=== PATIENT | female | born 1960 | race Caucasian/White ===

== ENCOUNTER → 2019-08-04 07:40 | Outpatient (CLI) | payer OTHER, SELFPAY ==
--- NOTE | ~2019-08-04 | MMUS_ITS ---
EXAMINATION: MM diagnostic chet BI w eva, US breast BI complete HISTORY: Unspecified lump or thickening reportedly found by patient's physician in unspecified locati on TECHNIQUE: ML, MLO and craniocaudal 3-D tomosynthesis images of both breasts were performed and synth etic 2-D images were generated. CAD analysis was submitted and interpreted. High resolution bilateral complete breast ultrasound was performed. COMPARISON: 08/04/2018, 07/14/2017, 07/10/2016 bilateral digital screening mammogram examinations BREAST PARENCHYMAL COMPOSITION: The breasts are heterogeneously dense, which may obscure small masses . FINDINGS: MAMMOGRAPHIC FINDINGS: Occasional benign calcifications. No suspicious mass or architectural distortion, malignant calcifica tion, skin thickening or retraction or significant new or developing density is detected. ULTRASOUND: At 7:00 3 cm from the nipple there is a parallel circumscribed sonolucent lesion measuring 9.5 x 6 x 3 mm, without internal vascularity or suspicious shadowing. At 10:00 5 cm from the nipple there is an approximately 2.5 mm cyst At 11:00 3 cm from the nipple there is an approximately 2.5 x 4 x 5.5 mm simple cyst. No suspicious solid lesion or shadowing is evident. IMPRESSION: 1. No mammographic evidence of malignancy 2. Routine annual mammographic screening is recommended. BI-RADS Category 2: Benign finding(s). Reviewed, dictated and finalized at location A. T ATTENDANT IMPRESSION: 1. No mammographic evidence of malignancy 2. Routine annual mammographic screening is recommended. BI-RADS Category 2: Benign finding(s).
== END ==
PROVIDERS: Visit Provider Nurse Practitioner Obstetrics & Gynecology
DX: N63.0 Unspecified lump in unspecified breast (principal); R92.8 Other abnormal and inconclusive findings on diagnostic imaging of breast
CPT/HCPCS: 76641; 77062; 77066; G0279

== ENCOUNTER → 2019-08-28 07:25 | Outpatient (CLI) | payer OTHER, SELFPAY ==
--- NOTE | ~2019-08-28 | US_ITS ---
EXAMINATION: US abdomen limited EXAM DATE: 08/28/2019 08:13 INDICATION: Right upper quadrant pain and nausea. TECHNIQUE: Multiple grayscale and Doppler images of the abdomen right upper quadrant were obtained (b y a technologist who performed the scan) and subsequently reviewed. There is no prior study for kajal hernandez. FINDINGS: The pancreatic head and body are normal in appearance. The pancreatic tail is not visualized. There is echogenic liver parenchyma, hepatic steatosis. There are no focal liver lesions identified. Th ere is no evidence of intrahepatic biliary duct dilation. Portal venous flow was seen in the hepatop edal, normal direction and has normal Doppler waveform. No right-sided hydronephrosis. Common bile duct measures 4 mm, which is normal. The gallbladder wall is normal in thickness, with ex pected amount of distention. No sonographic evidence of pericholecystic fluid. Multiple small galls tones. Technologist performing exam reports patient did not demonstrate sonographic Waters's sign. Please note that this sign is less reliable in patients who have received pain medication. IMPRESSION: 1. Hepatic steatosis. 2. Cholelithiasis. Reviewed, dictated and finalized at location B. SCIENCES DIRECTOR
== END ==
PROVIDERS: PCP Family Medicine; Visit Provider Family Medicine
DX: K76.0 Fatty (change of) liver, not elsewhere classified (principal); K80.20 Calculus of gallbladder without cholecystitis without obstruction
CPT/HCPCS: 76705

== ENCOUNTER → 2019-11-09 11:00 | Outpatient (REF) | payer OTHER, SELFPAY | LOC: ANHLAB 11:00 | PROVIDERS: PCP Family Medicine; Visit Provider Nurse Practitioner | DX: D23.72 Other benign neoplasm of skin of left lower limb, including hip (principal) | CPT/HCPCS: 88305 ==

== ENCOUNTER 2019-12-12 09:10 | Outpatient (CLI) | payer OTHER, SELFPAY ==
--- NOTE | 2019-12-12 09:14 | ECG_ITS ---
Measurements Intervals [place] Rate: 71 P: 64 WV: 201 QRS: 29 QRSD: 112 T: 36 QT: 380 QTc: 414 Interpretive Statements SINUS RHYTHM POSSIBLE LEFT ATRIAL ENLARGEMENT INTRAVENTRICULAR CONDUCTION DELAY BASELINE ARTIFACT- I, III, AVR, AVL BORDERLINE ECG Electronically Signed On 12-12-2019 9:35:48 CDT by Alphonso Fiore D.O.
[2019-12-12 09:49] LABS: Alanine Aminotransferase 20 U/L (4-35); Albumin Level 4.3 g/dL (3.5-5.1); Alkaline Phosphatase 66 U/L (38-126); Amylase 57 U/L (30-110); Aspartate Amino Transferase 25 U/L (14-36); Bilirubin,Total 0.7 mg/dL (0.2-1.3); Lipase 92 U/L (23-300)
[2019-12-12 09:50] LABS: Blood Urea Nitrogen 13 mg/dL (7-17); Calcium 9.1 mg/dL (8.4-10.2); Carbon Dioxide 27 mmol/L (22-30); Chloride 105 mmol/L (98-107); Estimated Glomerular Filt Rate > 60; Glucose 132 mg/dL (65-105); Potassium 3.6 mmol/L (3.4-5.0); Sodium 138 mmol/L (137-145)
== END 2019-12-12 09:11 | disposition home or self-care (01) ==
LOC: ANHSURGERY 09:14
PROVIDERS: Anesthesiology; PCP Family Medicine; Visit Provider Surgery
DX: Z01.818 Encounter for other preprocedural examination (principal); K80.20 Calculus of gallbladder without cholecystitis without obstruction; I10 Essential (primary) hypertension; Z79.899 Other long term (current) drug therapy
CPT/HCPCS: 36415; 80048; 80076; 82150; 83690; 86850; 86900; 86901; 93005

== ENCOUNTER 2019-12-19 00:42 | Outpatient (CLI) | payer OTHER, SELFPAY ==
[2019-12-19 18:12] LABS: SARS-CoV-2 RNA PCR Negative
== END 2019-12-19 00:43 | disposition home or self-care (01) ==
LOC: ANHCOVIDDT 00:42
PROVIDERS: PCP Family Medicine; Visit Provider Surgery
DX: Z20.828 Contact with and (suspected) exposure to other viral communicable diseases (principal); Z01.812 Encounter for preprocedural laboratory examination
CPT/HCPCS: 87635; C9803; U0003

== ENCOUNTER 2019-12-21 02:11 | Day surgery (SDC) | payer OTHER, SELFPAY ==
[2019-12-08 16:51] VITALS: BMI 32.4
[2019-12-21] VITALS (8 sets, daily range): BP systolic 90–135; BP diastolic 48–85; PULSE 56–80; RESP 12–14; TEMP 36.7–36.8; O2SAT 92–98
[2019-12-21] MEDS: LACTATED RINGERS 1,000 ML 30 ML IV CONT ×2 (07:50→09:55)
[2019-12-21] MEDS: IBUPROFEN IV 800 MG/200 ML 800 MG/200 ML BAG 400 MG IVPB (08:14)
--- NOTE | 2019-12-21 08:22 | P.PNAN_ITS ---
Anes - Initial Pre Proc Eval Procedure: Operation Date: 12/21/19 09:00 Proposed Procedures p Laparoscopic Cholecystectomy, Possible Open - Anuj Coronado DO Date/Time: 12/21/19 08:22 Surgeon: Anuj Coronado DO Pre Op Diagnosis: Cholecystitis Patient Data Age: 59 Gender: F Height: 5 ft 5 in Weight: 83.1 kg Last Vital Signs Temp 36.7 C 12/21/19 07:55 Pulse 67 12/21/19 07:55 BP 135/85 12/21/19 07:55 Pulse Ox 97 12/21/19 07:55 Allergies Allergy/AdvReac Type Severity Reaction Status Date / Time No Known Allergies Allergy Verified 12/08/19 16:40 Home Medications Medication Instructions Recorded Confirmed Type potassium chloride 10 mEq 10 meq PO TID #90 tablet 05/30/19 12/21/19 Rx tablet,extended release atenolol 50 mg-chlorthalidone 25 1 tablet PO DAILY 08/21/19 12/21/19 History mg tablet niacin 1 tablet PO DAILY 12/08/19 12/21/19 History Patient hx anesthesia problems: none Family hx anesthesia problems: none [facility] Past Medical History Medical History Benign reactive hypertension Hypothyroidism (acquired) Family History Family History Mother Hypertension Breast cancer Father History of blood clots Social History Social History Social History: Single Smoking status: Never smoker Second hand tobacco smoke exposure: No Alcohol intake: current Substance use: never Substance use type: does not use Gender identity (if verbalized by the patient): Female Anes - Eval Final PreProcedure Day of Procedure 12/21/19 08:22 Patient weight: obese Heart: regular rate and rhythm Lungs: clear to auscultation Airway: Mallampati scale class II and special considerations poor opening Last oral intake: >/= 8 hours ASA classification: II Emergent: no Anesthetic plan: proceed Anesthesia type and monitoring: general ETT and standard monitoring Informed Consent: The patient's anesthetic plan and its attendant risks and benefits were discussed with the patient/family/POA. Questions were solicited and answers provided to the satisfaction of the patient/family/POA.
--- NOTE | 2019-12-21 08:49 | PM.IMHP ---
H&P: HPI History of Present Illness Chief complaint: Cholecystitis Narrative: Yumiko Irwin is a 59 year old female who presents for Lap brendan. She has been experiencing RUQ pain after eating. U/s showed evidence of cholelithiasis. Review of Systems Review of Systems: All systems reviewed & are unremarkable except as noted in HPI and below PMFSH Past Medical History Medical History Benign reactive hypertension Hypothyroidism (acquired) Family History Family History Mother Hypertension Breast cancer Father History of blood clots Social History Social History Social History: Single Smoking status: Never smoker Second hand tobacco smoke exposure: No Alcohol intake: current Substance use: never Substance use type: does not use Gender identity (if verbalized by the patient): Female Meds Home Medications and Allergies Home Medications Medication Instructions Recorded Confirmed Type potassium chloride 10 mEq 10 meq PO TID #90 tablet 05/30/19 12/21/19 Rx tablet,extended release atenolol 50 mg-chlorthalidone 25 1 tablet PO DAILY 08/21/19 12/21/19 History mg tablet niacin 1 tablet PO DAILY 12/08/19 12/21/19 History Allergies Allergy/AdvReac Type Severity Reaction Status Date / Time No Known Allergies Allergy Verified 12/08/19 16:40 Vital Signs Vital Signs - 24 hr 12/21/19 07:55 Temperature 36.7 C Pulse Rate 67 Blood Pressure 135/85 Pulse Oximetry 97 Exam Const: General: alert; No acute distress Orientation/consciousness: patient oriented x3 Limitations: no limitations HENMT: Head: normocephalic and atraumatic Ears: hearing grossly normal bilaterally General nose exam: Normal external nose present and Normal nares present Mouth: Yes Normal oral and palatal mucosa present and Yes moist mucous membranes Eyes: General: appearance normal, both eyes and all related structures Conjunctivae: conjunctivae normal Sclera: sclerae normal Pupils: Equal, round and reactive pupils present EOM: EOMs intact bilaterally Neck: Neck: normal visual inspection, full ROM, no lymphadenopathy, supple and no JVD Lymphatic: no lymphadenopathy noted Chest: Chest palpation & inspection: normal inspection of the chest Resp: Effort & Inspection: normal respiratory effort and able to speak in complete sentences Auscultation: clear to auscultation bilaterally Percussion: percussion normal Cardio: Jugular venous distension: no JVD Rate: regular rate Rhythm: regular rhythm Heart sounds: S1 normal heart sound present and S2 normal heart sound present Peripheral pulses: Peripheral pulses 2+ throughout GI: Inspection: normal to inspection GI Palp: No abdominal tenderness, Yes Soft to palpation, No Guarding due to palpation present (GI), No Hernia present and No Rebound tenderness present Percussion: Yes normal to percussion Auscultation: normal bowel sounds : General: Yes no CVA tenderness Back/Spine/Pelvis: Back: no CVA tenderness Skin: General skin exam: normal color and dry skin Neuro: General: patient oriented x3, gait normal, moves all extremities, no focal motor deficits and CN's II-XI intact bilaterally Cranial nerves: Yes Equal, round and reactive pupils present Speech: normal speech Extrem: General: normal to inspection and capillary refill normal Assessment and Plan Assessment and plan (1) Symptomatic cholelithiasis: Code(s): K80.20 - Calculus of gallbladder without cholecystitis without obstruction Status: Acute Assessment and Plan: I have recommended laparoscopic cholecystectomy, possible open. I have discussed the procedure, risks, benefits, and alternatives with the patient. All questions answered. No changes since last seen in office.
[2019-12-21] MEDS: ceFAZolin 2 GM/D5W 50 ML 2 GM/50 ML BAG IVPB (08:57)
[2019-12-21] MEDS: BUPIVACAINE/EPINEPHRINE 0.5% 30 ML VIAL INFILTRATE (09:22)
--- NOTE | 2019-12-21 09:56 | PM.PROC ---
Procedure Note - Detailed Date of procedure: 12/21/19 Pre-op diagnosis: Symptomatic cholelithiasis Post-op diagnosis: same Procedure performed: Laparoscopic Cholecystectomy Description of procedure: Procedure as well as risks, benefits, and alternatives were discussed with patient. Written consent was obtained and placed in chart prior to procedure. The patient was brought back to surgical suite. Patient was placed in supine position on operating table. Time-out was done to confirm patient and procedure. Patient was then intubated by the anesthesia department. Abdomen was prepped and draped in sterile fashion using chlorhexidine prep. 0.5% bupivacaine with epinephrine was infiltrated at each site of incision. An 11 millimeter vertical incision was made at the inferior portion of the umbilicus using a 15 blade scalpel. Blunt dissection was carried down to the linea alba. The linea alba was then incised using a 15 blade scalpel. The peritoneum was then bluntly entered. An 11 millimeter trocar was inserted and cabon dioxied insuflation was used to create a pneumoperitoneum. The camera was inserted and the abdomen was inspected. The patient was placed in reverse Trendelenberg position and rotated slightly to the left. A 5 millimeter incision was made in the epigastric region, and a 5 millimeter trocar was inserted under direct visualization. Two 5 millimeter incisions were made in the right upper quadrant, and two 5 millimeter trocars were inserted under direct visualization. The gallbladder was identified and grasped at the fundus and retracted superiorly. It was then grasped at the infundibulum retracted laterally. Careful dissection around the neck of the gallbladder was performed using blunt dissection with a [place] grasper and hook electrocautery. The cystic duct was identified, and a window was created behind it. The cystic artery was also identified and a window was created behind it. The critical view of safety was identified, visualizing the cystic duct running directly into the neck of the gallbladder, and the cystic artery running directly into the wall of the gallbladder. A 5 millimeter clip grinding machine operator portable was then used to place 2 clips proximally and 1 clip distally on both the cystic duct and cystic artery. They were then both transected using endoscopic scissors. Once safely away from the fara hepatitis, the gallbladder was dissected free from the liver bed using hook electrocautery. Hemostasis was achieved along the way. The gallbladder was removed completely and then removed through the umbilical port. The liver bed was then inspected. Hemostasis appeared adequate, and our clips appeared secure. The area was gently irrigated with sterile saline. No other abnormalities were seen. The patient was flattened out in bed, and 1 final inspection was made around the abdominal cavity. The ports were then removed under direct visualization, the camera was removed, and the pneumoperitoneum was released. The fascia of the umbilical incision was approximated using an 0 Vicryl [id number] suture. The skin of the incisions was approximated using 4-0 Monocryl subcuticular sutures. Exofin glue was applied on top. The patient was then awakened from anesthesia, extubated, and transferred to recovery. Anesthesia: GETA and local (0.5% bupivicaine with epinephrine) Surgeon: Anuj Coronado DO Estimated blood loss (mL): 5 Complications: No immediate complications Condition: stable Findings: Yumiko is a 58 y/o female who presents with RUQ abdominal pain, diarrhea, and vomiting. She reports experiencing RUQ and RLQ abdominal pain every few months. She states the last episode was after eating ice cream. She states time improves her symptoms. She has experienced associated diarrhea and vomiting. She denies fevers. She is trying to maintain a low fat diet. She had an U/S done at [facility] on 08/28/19 which showed hepatic steatosis and cholelithiasis.
== END 2019-12-21 11:41 | disposition home or self-care (01) ==
PROVIDERS: PCP Family Medicine; Visit Provider Surgery
PROC: 0FT44ZZ Resection of Gallbladder, Percutaneous Endoscopic Approach (ICD-10-PCS; CPT 47562; principal; 2019-12-21 09:00)
DX: K80.10 Calculus of gallbladder with chronic cholecystitis without obstruction (principal); I10 Essential (primary) hypertension; E03.9 Hypothyroidism, unspecified; E66.9 Obesity, unspecified; Z68.30 Body mass index [BMI] 30.0-30.9, adult
CPT/HCPCS: 47562; 88304; J0131; J0690; J1100; J1741; J2250; J2405; J2704; J2710; J3010; J7030; J7120

== ENCOUNTER 2022-06-08 06:40 | Day surgery (SDC) | payer OTHER, SELFPAY ==
[2022-01-30 12:01] VITALS: BMI 33.1
[2022-05-21 13:26] VITALS: BMI 32.3
--- NOTE | 2022-06-05 14:44 | PM.HPGS ---
History of Present Illness History of Present Illness Consent: Risks, benefits, and alternatives have been discussed and questions answered. Patient agrees to proceed with procedure. Chief complaint: Neoplasm Screening Narrative: Yumiko Irwin is a 61 year old female Referred for colon cancer screening. Her last colonoscopy, 10 years ago was unremarkable. Review of Systems Review of Systems: All systems reviewed & are unremarkable except as noted in HPI and below PMFSH Past Medical History Medical History Benign reactive hypertension Hepatic steatosis Hypertension Hypothyroidism (acquired) Surgical History Surgical History History of laparoscopic cholecystectomy 12/22/19 Family History Family History Mother Hypertension Breast cancer Father History of blood clots Social History Social History Social History: Single Smoking status: Never smoker Second hand tobacco smoke exposure: No Alcohol intake: current Alcohol use details: rarely Substance use: never Substance use type: does not use Living arrangements: alone Gender identity (if verbalized by the patient): Female Sexual Orientation (if Verbalized by the Patient): Straight or Heterosexual Spiritual care concerns: No Meds Home Medications and Allergies Home Medications Medication Instructions Recorded Confirmed Type atenolol 50 mg-chlorthalidone 25 See Rx Instructions .Route 12/30/21 06/08/22 Rx mg tablet .COMPLEX #90 tabs potassium chloride 10 mEq See Rx Instructions .Route 12/30/21 06/08/22 Rx tablet,extended release(part/cryst) .COMPLEX #270 tabs Allergies Allergy/AdvReac Type Severity Reaction Status Date / Time No Known Allergies Allergy Verified 06/08/22 07:21 Exam Const: General: alert Orientation/consciousness: patient oriented x3 Resp: Auscultation: clear to auscultation bilaterally Cardio: Rhythm: regular rhythm GI: GI Palp: Yes Soft to palpation and No Tenderness to palpation present (GI) Neuro: General: patient oriented x3 Assessment and Plan Assessment and plan (1) Colon cancer screening: Code(s): Z12.11 - Encounter for screening for malignant neoplasm of colon Status: Acute Assessment and Plan: Colonoscopy with possible biopsy or polypectomy or cautery or injection of substances.
--- NOTE | 2022-06-08 06:58 | P.PNAN_ITS ---
Anes - Initial Pre Proc Eval Procedure: Operation Date: 06/08/22 08:30 Proposed Procedures p Screening Colonoscopy - Christian Puri MD Date/Time: 06/08/22 06:58 Surgeon: Christian Puri MD Pre Op Diagnosis: Neoplasm Screening Patient Data Age: 61 Gender: F Height: 1.65 m Weight: 88 kg Allergies Allergy/AdvReac Type Severity Reaction Status Date / Time No Known Allergies Allergy Verified 06/08/22 07:21 Home Medications Medication Instructions Recorded Confirmed Type atenolol 50 mg-chlorthalidone 25 See Rx Instructions .Route 12/30/21 06/08/22 Rx mg tablet .COMPLEX #90 tabs potassium chloride 10 mEq See Rx Instructions .Route 12/30/21 06/08/22 Rx tablet,extended release(part/cryst) .COMPLEX #270 tabs Patient hx anesthesia problems: none Family hx anesthesia problems: none Results Review: All pre-operative results and documents have been reviewed as part of the pre- operative evaluation. [facility] Past Medical History Medical History (Updated 06/08/22 @ 08:37 by Mykel Chadwick DO) Benign reactive hypertension Surgical History Surgical History History of laparoscopic cholecystectomy 12/22/19 Family History Family History Mother Hypertension Breast cancer Father History of blood clots Social History Social History Social History: Single Smoking status: Never smoker Second hand tobacco smoke exposure: No Alcohol intake: current Alcohol use details: rarely Substance use: never Substance use type: does not use Living arrangements: alone Gender identity (if verbalized by the patient): Female Sexual Orientation (if Verbalized by the Patient): Straight or Heterosexual Spiritual care concerns: No Anes - Eval Final PreProcedure Day of Procedure 06/08/22 06:58 Patient weight: obese Heart: regular rate and rhythm Lungs: clear to auscultation Airway: Mallampati scale class II Neurological: alert and oriented Last oral intake: >/= 8 hours ASA classification: II Emergent: no Anesthetic plan: proceed Anesthesia type and monitoring: general GIVS and standard monitoring Results Review: All pre-operative results and documents have been reviewed as part of the pre- operative evaluation. Informed Consent: The patient's anesthetic plan and its attendant risks and benefits were discussed with the patient/family/POA. Questions were solicited and answers provided to the satisfaction of the patient/family/POA.
[2022-06-08 07:15] VITALS: BP 135/80; PULSE 77; RESP 20; TEMP 37.1; O2SAT 97
[2022-06-08] MEDS: LACTATED RINGERS 1,000 ML 150 ML IV CONT (07:35)
[2022-06-08 08:31] VITALS: BP 103/65; PULSE 70; RESP 20; O2SAT 98
[2022-06-08 08:41] VITALS: BP 95/73; PULSE 74; RESP 20; O2SAT 100
[2022-06-08 08:51] VITALS: BP 100/72; PULSE 75; RESP 20; O2SAT 97
--- NOTE | 2022-06-08 11:38 | WPDANESPN ---
Anes - Prog Note Post-Op Date/Time: 06/08/22 11:38 Cardiovascular status: normal Respiratory status: normal Airway patency: baseline Mental status: baseline Post-Op hydration status: normal Vital Signs: Last Vital Signs Temp 37.1 C 06/08/22 07:15 Pulse 75 06/08/22 08:51 Resp 20 06/08/22 08:51 BP 100/72 06/08/22 08:51 Pulse Ox 97 06/08/22 08:51 O2 Del Method Room Air 06/08/22 08:51 Pain Score (VAS): 0 Post-procedural complaints: none Patient Feedback: Patient satisfied with anesthetic care. Other Findings: Patient vital signs back to baseline. Patient denies nausea and vomiting. Patient's pain under control. Patient OK for discharge.
== END 2022-06-08 09:08 | disposition home or self-care (01) ==
PROVIDERS: PCP Family Medicine; Visit Provider Internal Medicine Gastroenterology
PROC: 0DJD8ZZ Inspection of Lower Intestinal Tract, Via Natural or Artificial Opening Endoscopic (ICD-10-PCS; CPT 45378; principal; 2022-06-08 08:30)
DX: Z12.11 Encounter for screening for malignant neoplasm of colon (principal)
CPT/HCPCS: 45378

== ENCOUNTER → 2023-08-30 13:09 | Outpatient (CLI) | payer OTHER, SELFPAY ==
--- NOTE | ~2023-08-30 | DEXA_ITS ---
Bone Density Report Name: DARRON CARRERA Age: 62 Sex: Female Ethnicity: White Date of : 1960 Indication: postmenopausal; screening for osteoporosis; height loss; Referring Provider: DOE, ERICH Suárez Study: Bone densitometry was performed. Exam Date: August 30, 2023 Accession number: [id number] Bone Density: Region BMD T-score Z-score Classification AP Spine (L1-L4) 1.017 -0.3 1.3 Normal Femoral Neck (Left) 0.638 -1.9 -0.5 Osteopenia Total Hip (Left) 0.810 -1.1 0.0 Osteopenia Femoral Neck (Right) 0.652 -1.8 -0.4 Osteopenia Total Hip (Right) 0.845 -0.8 0.2 Normal Total Hip Mean 0.828 -1.0 0.1 Normal World Health Organization criteria for BMD impression classify patients as: Normal (T-score at or above -1.0), Osteopenia (T-score between -1.0 and -2.5), or Osteoporosis (T-score at or below -2.5). 10-year Fracture Risk(1): Major Osteoporotic Fracture 8.7% Hip Fracture 0.9% Reported Risk Factors: [place] (), Neck BMD=0.638, BMI=35.0 (1) FRAX(R) Version 3.08. Fracture probability calculated for an untreated patient. Fracture probability may be lower if the patient has received treatment. Previous Exams: Region Exam Age BMD T-score BMD Change BMD Change Date g/cm2 vs Baseline vs Previous AP Spine(L1-L4) 08/30/2023 62 1.017 -0.3 -0.050* -0.085* 04/24/2014 53 1.102 0.5 0.035* 0.035* 04/02/2008 47 1.066 0.2 Total Hip(Left) 08/30/2023 62 0.810 -1.1 -0.004 -0.009 04/24/2014 53 0.819 -1.0 0.004 0.004 04/02/2008 47 0.815 -1.0 Total Hip(Right) 08/30/2023 62 0.845 -0.8 -0.006 -0.035* 04/24/2014 53 0.880 -0.5 0.030* 0.030* 04/02/2008 47 0.850 -0.8 *Denotes significance at 95% confidence level, LSC for AP Spine = 0.022 g/cm2, LSC for Total Hip = 0.027 g/cm2 Clinical Information Provided by Patient: Patient maximum height was 65 Menopause Age: 52 No regular weight bearing exercise Drinks caffeinated beverages Onset of menses at age 14 Number of children 0 Impression: The patient has low bone mass, based on the Left Femoral Neck T-score. The patient has an estimated ten-year risk of hip fracture of 0.9% and an estimated ten-year risk of major fracture of 8.7%, based on the WHO FRAX algorithm. The BMD for the AP Spine(L1-L4) decreased, changing by -0.085 since the last DXA exam. The
== END ==
PROVIDERS: PCP Family Medicine; Visit Provider Nurse Practitioner
DX: Z13.820 Encounter for screening for osteoporosis (principal); M85.852 Other specified disorders of bone density and structure, left thigh; M85.851 Other specified disorders of bone density and structure, right thigh
CPT/HCPCS: 77080